=== PATIENT | female | born 1970 | race African-American/Black ===

== ENCOUNTER 2021-03-04 16:51 | Emergency (ER) | payer BC, MEDICAID ==
[~2021-03-04] VITALS: Ht 157.5 cm; Wt 70.0 kg
[~2021-03-04 16:51] MED LIST: GABA-290 PO; QUET400T PO
[2021-03-04] MEDS ORDERED: ACETAMINOPHEN 325MG TABLET PO STA (18:02)
[2021-03-04] MEDS ORDERED: MORPHINE SULFATE 4 MG/ML CPJ (NOT FOR IM USE) IV STA (18:02)
[2021-03-04] MEDS ORDERED: SODIUM CHLORIDE 0.9% 1,000 ML IV ONE (18:15)
[2021-03-04] MEDS ORDERED: PIPERACILLIN/TAZ 3.375G PREMIX 50 ML IV ONE (18:15)
[2021-03-04 19:06] LABS: BASOPHILS % 0.8 % (0.0-2.0); EOSINOPHILS % 1.2 % (0.0-5.0); HEMATOCRIT. 40.2 % (36.0-48.0); HEMOGLOBIN. 13.6 g/dL (12.0-16.0); LYMPHOCYTES % 41.7 % (20.0-50.0); MEAN CORPUSCULAR HEMOGLOBIN 30.2 pg (28.0-32.0); MEAN CORPUSCULAR VOLUME 89.4 fL (81.0-99.0); MEAN PLATELET VOLUME 8.1 fl (7.4-10.4); MONOCYTES % 7.3 % (2.0-8.0); PLATELET 233 x1000/uL (130-400); RED BLOOD CELL COUNT 4.49 mill/uL (4.2-5.4)
[2021-03-04 19:12] LABS: CHLORIDE 107 mEq/L (98-107)
[2021-03-04 19:14] LABS: PROTHROMBIN TIME 10.9 sec (9.6-11.0)
[2021-03-04] MEDS ORDERED: KETOROLAC 15MG/ML VIAL IV ONE (20:30)
[2021-03-04] MEDS ORDERED: MORPHINE SULFATE 4 MG/ML CPJ (NOT FOR IM USE) IV ONE (20:30)
[2021-03-04] MEDS ORDERED: AMOX-424 MT (21:23)
[2021-03-04 21:33] VITALS: BP 147/84
[2021-03-04] MEDS ORDERED: IOHEXOL-300 100 ML BOTTLE ONE (21:52)
== END 2021-03-04 21:35 | disposition home or self-care (01) ==
LOC: ER 18:41
DX: K04.7 Periapical abscess without sinus (principal); K00.9 Disorder of tooth development, unspecified; F12.10 Cannabis abuse, uncomplicated; F17.200 Nicotine dependence, unspecified, uncomplicated; Z90.49 Acquired absence of other specified parts of digestive tract; Z98.51 Tubal ligation status; Z79.899 Other long term (current) drug therapy; Z88.8 Allergy status to other drugs, medicaments and biological substances; Z88.1 Allergy status to other antibiotic agents
CPT/HCPCS: 36415; 70487; 80053; 85025; 85610; 96365; 96366; 96375; 96376; 99285; J1885; J2270; J2543; J7030; Q9967